=== PATIENT | female | born 1955 | race Caucasian/White ===

== ENCOUNTER 2020-12-24 06:52 | Emergency (ER) | payer MEDICAID ==
[~2020-12-24] VITALS: Ht 157.5 cm; Wt 90.7 kg
--- NOTE | 2020-12-24 06:52 | NUR ---
Patient to ER bed 3 to gown for evaluation. Side rails up. Report given to jhony BLANCO.
--- NOTE | 2020-12-24 07:00 | NUR ---
Assumed care of patient, report received from FRANCIS Ball. Pt currently resting in bed, no acute distress noted.
[2020-12-24 07:01] VITALS: BP_SYST 193
--- NOTE | 2020-12-24 07:05 | NUR ---
ER Dr. Bunch at bedside examining patient.
--- NOTE | 2020-12-24 07:50 | NUR ---
Talked to Marcie, Nursing Program Coordinator regarding pt's living situation, pt recently lost her job and they are living in a hotel. Marcie will come over and talk to patient prior to discharge.
[2020-12-24] MEDS ORDERED: HYDR-4039 PO (08:05)
--- NOTE | 2020-12-24 08:25 | NUR ---
Pt declined social studies department chair consult and homeless packet.
[2020-12-24] MEDS ORDERED: HYDR50TA61 PO (08:26)
[2020-12-24 08:31] VITALS: BP_SYST 165
--- NOTE | 2020-12-24 08:35 | NUR ---
Patient given written and verbal discharge instructions and verbalizes understanding. ER MD discussed with patient the results and treatment provided. Patient in stable condition. ID arm band removed. Rx of Hydroxyzine given. Patient educated on pain management and to follow up with PMD. Pain Scale 0. Opportunity for questions provided and answered. Medication side effect fact sheet provided.
== END 2020-12-24 08:31 | disposition home or self-care (01) ==
LOC: SED 06:52
DX: F43.0 Acute stress reaction (principal); F41.9 Anxiety disorder, unspecified; Z79.899 Other long term (current) drug therapy
CPT/HCPCS: 99283